=== PATIENT | male | born 2000 | race African-American/Black ===

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

== ENCOUNTER 2020-07-13 22:07 | Emergency (ER) | payer OTHER ==
--- NOTE | 2020-07-13 23:25 | RAD ---
EXAM: 4 views of the right knee HISTORY: Knee pain after fall COMPARISON: None FINDINGS: No knee effusion is seen. There is no evidence of acute fracture or dislocation. No signifi cant degenerative changes are seen. No soft tissue swelling is present. IMPRESSION: No evidence of acute osseous abnormality.
--- NOTE | 2020-07-13 23:27 | CT ---
EXAM: CT brain without contrast HISTORY: Fall with head trauma and light sensitivity COMPARISON: 06/28/2019 TECHNIQUE: Multiple contiguous axial images were obtained and a CT of the brain without contrast. FINDINGS: The brain is normal in morphology and attenuation without focal lesions or confluent areas of infarction. There is no evidence of hydrocephalus, intracranial hemorrhage, or extra-axial fluid collection. The calvarium and overlying soft tissues are unremarkable. The visualized paranasal sinuses and masto id air cells are well aerated. IMPRESSION: No evidence of acute intracranial abnormality
== END 2020-07-13 23:40 ==
LOC: ERS 22:07
DX: S09.90XA Unspecified injury of head, initial encounter (principal); M25.561 Pain in right knee; I10 Essential (primary) hypertension; Z87.891 Personal history of nicotine dependence; Y04.0XXA Assault by unarmed brawl or fight, initial encounter; Y93.67 Activity, basketball; Y92.149 Unspecified place in prison as the place of occurrence of the external cause
CPT/HCPCS: 70450